=== PATIENT | female | born 1945 | race Caucasian/White ===

== ENCOUNTER → 2017-02-12 | Outpatient (CLI) | payer MEDICARE ==
[2017-02-12 15:36] LABS: Non-African American GFR(MDRD) >60 (>60 ml/min/1.73 sqM)
== END | disposition home or self-care (01) ==
LOC: LABWHC1 14:59
PROVIDERS: ATTEND Family Medicine
DX: M54.5 Low back pain (principal)
CPT/HCPCS: 36415; 82565

== ENCOUNTER → 2017-02-15 | Outpatient (CLI) | payer MEDICARE ==
--- NOTE | 2017-02-15 09:31 | MR ---
EXAMINATION TYPE: MR lumbar spine wo/w con DATE OF EXAM: 02/15/2017 COMPARISON: Prior lumbar MRI 07/18/2011 HISTORY: lumbago w/sciatica TECHNIQUE: Multiplanar, multisequence images of the lumbar spine were acquired utilizing [address] gadolinium contrast. Spinal curvature is noted. Lumbar vertebral bodies show stable height, alignment, bone marrow signal, hemangioma present within the L3, T12 vertebral bodies. There is multilevel spondylosis. Loss of dis c height and signal present at the intervertebral levels. L1-L2: Normal disc appearance without desiccation. No herniation, protrusion or disc bulging. No ca nal stenosis is present. Foramina are patent bilaterally. L2-L3: Broad-based posterior disc bulge causes mild anterior mass effect on the thecal sac. Facet art hropathy causes mild encroachment on the lateral recesses. L3-L4: Facet arthropathy with hypertrophy of the ligamentum flavum encroaches somewhat on the lateral recesses. Circumferential extension of endplate disc complex encroaches mildly on the neural foramin a. Broad-based disc bulge causes mild anterior mass effect on the thecal sac. L4-L5: Broad-based posterior disc bulge causes anterior mass effect on the thecal sac, hypertrophic c hange of the facets results in a trefoil appearance of the thecal sac, circumferential extension of e ndplate disc complex results in bilateral foraminal encroachment. There has been some progression sin ce prior exam. Minimal anterolisthesis grade 1 L4-5 L5-S1: Posterior extension of endplate disc complex results in anterior mass effect on the thecal sac . Facet arthropathy with hypertrophy of ligamentum flavum encroaches on the lateral recesses. Circumf erential extension of endplate disc complex results in bilateral foraminal encroachment as on prior e xam. Lumbar segments are intact. No paraspinal masses are identified. Conus medullaris has a normal appe arance. No abnormal enhancement following contrast administration. IMPRESSION: Degenerative disc disease, facet arthropathy, neural foraminal encroachment as described. Mild spinal stenosis greatest at L4-5 likely contributed to minimal grade 1 anterolisthesis. Spinal curvature.
== END | disposition home or self-care (01) ==
LOC: RADMRIMAIN 08:16
PROVIDERS: ATTEND Family Medicine
DX: M48.061 Spinal stenosis, lumbar region without neurogenic claudication (principal); M51.36 Other intervertebral disc degeneration, lumbar region; M46.86 Other specified inflammatory spondylopathies, lumbar region
CPT/HCPCS: 72158; A9581

== ENCOUNTER → 2018-01-31 | Outpatient (CLI) | payer MEDICARE ==
--- NOTE | 2018-02-02 13:11 | MR ---
EXAMINATION TYPE: MR cervical spine wo con DATE OF EXAM: 01/31/2018 COMPARISON: None HISTORY: Congenital malformation of the spine, stiff neck and shoulder pain TECHNIQUE: Multiplanar, multisequence images of the cervical spine were acquired. C2-C3: Small central disc bulge is present with anterior thecal sac contact. No spinal canal stenosis present. Neural foramen are patent. C3-C4: Endplate changes with some associated disc material are present centrally and left paracentral ly. This has mild anterior thecal sac contact. There is mild borderline narrowing 0.76 cm present. Mi ld left foraminal narrowing is present. Cord signal is preserved. C4-C5: Mild broad-based disc bulge is present with anterior thecal sac impression. Mild cord contact is present. No cord deformity is evident. No spinal canal stenosis is present. Mild right foraminal n arrowing is present. C5-C6: No evidence for degenerative disc disease. No disc bulge/herniation or protrusion. No Canal stenosis. Foramina are patent bilaterally. C6-C7: No evidence for degenerative disc disease. No disc bulge/herniation or protrusion. No Canal stenosis. Foramina are patent bilaterally. C7-T1: No evidence for degenerative disc disease. No disc bulge/herniation or protrusion. No Canal stenosis. Foramina are patent bilaterally. C5-6-7 vertebral bodies appear somewhat smaller. There is disc space narrowing through these levels. Posterior wall displacement however is not evident. Congenital fusion or attempted fusion could be co nsidered. There is straightening of the cervical spine in the sagittal plane. Cervical spinal cord is of normal signal. Craniovertebral junction relationships are within normal limits. IMPRESSION: 1. Borderline spinal canal stenosis secondary to endplate changes and disc bulging C3-4 with an AP d imension of 0.76 cm. 2. 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
== END | disposition home or self-care (01) ==
LOC: RADMRIMAIN 20:42
PROVIDERS: ATTEND Internal Medicine Rheumatology
DX: M48.02 Spinal stenosis, cervical region (principal); M50.21 Other cervical disc displacement, high cervical region; M47.812 Spondylosis without myelopathy or radiculopathy, cervical region; Q76.49 Other congenital malformations of spine, not associated with scoliosis
CPT/HCPCS: 72141

== ENCOUNTER → 2024-07-09 | Outpatient (CLI) | payer MEDICARE ==
--- NOTE | 2024-07-09 10:57 | CT ---
EXAMINATION TYPE: CT knee LT wo con CT DLP: 440.10 mGycm, Automated exposure control for dose reduction was used. DATE OF EXAM: 07/09/2024 10:46 AM COMPARISON: None CLINICAL INDICATION:Female, 78 years old with history of S82.142A DISPLACED LEFT TIBIA FX; PHH, LT kn ee pain, tibial plateau fracture TECHNIQUE: Axial images were obtained of the left knee without the use of IV contrast. Additional co isis and sagittal reformatted images and soft tissue and bone window were obtained for review. 3-D r econstruction was created on a separate workstation. FINDINGS: Acute lateral tibial plateau fracture with approximately 2 mm of depression with splitting. No subluxation or dislocation. Prepatellar soft tissue edema. Small knee joint effusion. Espinoza's cys t measuring grossly 2.8 x 1.1 cm. Mild medial tibiofemoral joint space narrowing with sclerosis. Smal l suprapatellar spurring. IMPRESSION: Acute lateral tibial plateau fracture (type II Schatzker classification). [facility], , 07/09/2024 10:55 AM
== END | disposition home or self-care (01) ==
LOC: RADCTMAIN 10:11
PROVIDERS: ATTEND Orthopaedic Surgery
DX: S82.122A Displaced fracture of lateral condyle of left tibia, initial encounter for closed fracture (principal); S82.142A Displaced bicondylar fracture of left tibia, initial encounter for closed fracture